=== PATIENT | female | born 1965 | race Caucasian/White ===

== ENCOUNTER 2017-02-19 10:23 | Day surgery (SDC) | payer BC ==
[2017-02-19] MEDS ORDERED: TETRACAINE 0.5% OPHTH 1 DOSE AFFEYE ONE ×3 (10:56→14:17)
[2017-02-19] MEDS ORDERED: VIGAMOX 0.5% OPHTH 1 DOSE AFFEYE ONE ×5 (10:57→14:32)
[2017-02-19] MEDS ORDERED: NS 500 ML IV 500 ML IV ONE (11:06)
[2017-02-19] MEDS ORDERED: PROLENSA OPHTH 1 DOSE AFFEYE ONE (11:08)
[2017-02-19] MEDS ORDERED: ALPHAGAN-P OPHTH 1 DOSE AFFEYE ONE (11:09)
[2017-02-19] MEDS ORDERED: AK-DILATE 2.5% OPHTH 1 DOSE OP ONE ×5 (11:10→11:14)
[2017-02-19] MEDS ORDERED: MYDRIACIL OPHTH 1 DOSE AFFEYE ONE ×5 (11:10→11:14)
[2017-02-19] MEDS ORDERED: CYCLOGYL 1% OPHTH 1 DOSE OP ONE ×5 (11:10→11:14)
[2017-02-19] MEDS ORDERED: BETADINE OPHTH SOLN 5% EACHEYE ONE (14:10)
[2017-02-19] MEDS ORDERED: DUOVISC IO ONE (14:17)
[2017-02-19] MEDS ORDERED: XYLOCAINE-MPF 1% IJ ONE (14:17)
[2017-02-19] MEDS ORDERED: ADRENALINE CHL INJ IJ ONE (14:17)
[2017-02-19] MEDS ORDERED: BSS OPHTH (PLAIN) 500 ML with VANCOMYCIN HCL 500 MG VIAL 25 MG, ADRENALINE CHL INJ 1 MG IR ONE ×3 (14:17)
[2017-02-19] MEDS ORDERED: VERSED ONE (15:31)
[2017-02-19 15:51] VITALS: BP 143/86
== END 2017-02-19 14:55 | disposition home or self-care (01) ==
LOC: SURG1 10:23
PROVIDERS: ATTEND Ophthalmology
PROC: 08DK3ZZ Extraction of Left Lens, Percutaneous Approach (ICD-10-PCS; principal; 2017-02-19 20:15)
PROC: 08RK3JZ Replacement of Left Lens with Synthetic Substitute, Percutaneous Approach (ICD-10-PCS; principal; 2017-02-19 20:15)
DX: H25.12 Age-related nuclear cataract, left eye (principal); H25.042 Posterior subcapsular polar age-related cataract, left eye
CPT/HCPCS: A4217; J0170; J2250; J3370